=== PATIENT | female | born 1985 | race Caucasian/White ===

== ENCOUNTER 2020-01-04 18:13 | Emergency (ER) | payer OTHER ==
[~2020-01-04] VITALS: Ht 154.9 cm; Wt 51.9 kg
[2020-01-04] MEDS ORDERED: DIPHTH/TETANUS/ACEL. PERTUSSIS 0.5 ML SYR IM ONE (18:45)
[2020-01-04] MEDS ORDERED: IBUPROFEN 600 MG TAB ONE (18:53)
[2020-01-04] MEDS ORDERED: TETANUS/DIPHTHERIA TOX ADULT 0.5 ML SYR ONE (18:54)
[2020-01-04] MEDS ORDERED: IBUPROFEN 600 MG TAB PO STA (18:58)
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
[2020-01-04] MEDS ORDERED: AUGMENTIN 875-1 EACH PO (19:44)
== END 2020-01-04 19:50 | disposition home or self-care (01) ==
LOC: FSED 18:13
DX: S61.241A Puncture wound with foreign body of left index finger without damage to nail, initial encounter (principal); W26.8XXA Contact with other sharp object(s), not elsewhere classified, initial encounter; W45.8XXA Other foreign body or object entering through skin, initial encounter; Y93.19 Activity, other involving water and watercraft; Y92.828 Other wilderness area as the place of occurrence of the external cause
CPT/HCPCS: 81025; 90471; 90714; 96372

== ENCOUNTER → 2021-04-04 | Outpatient (CLI) | payer OTHER ==
[~2021-04-04] MED LIST: AUGMENTIN 875-1 EACH PO
== END ==
LOC: VACCPMC 09:00
DX: Z23 Encounter for immunization (principal); Z20.822 Contact with and (suspected) exposure to COVID-19

== ENCOUNTER → 2021-05-02 | Outpatient (CLI) | payer OTHER | LOC: VACCPMC 13:44 | DX: Z23 Encounter for immunization (principal); Z20.822 Contact with and (suspected) exposure to COVID-19 ==